=== PATIENT | male | born 1970 | race Caucasian/White ===

== ENCOUNTER 2017-06-25 19:23 | Emergency (ER) | payer OTHER ==
[2017-06-25 19:43] VITALS: BP 122/75
--- NOTE | 2017-06-25 20:24 | UC ---
Shoulder Pain HPI - History of Current Complaint Chief Complaint: UCUpperExtremity Stated Complaint: LEFT SHOULDER PAIN Time Seen by Provider: 06/25/17 20:06 Onset/Duration: Sudden Onset - lifting a car door yesterday about 2 PM, Still Present Timing: Constant Severity Initially: Severe - initially with a burning sensation that made him weak in the knees. Severity Currently: Severe Location Of Pain: Is Discrete @ - Left anterior shoulder. Character: Sharp, Burning Aggravating Factor(s): Movement Alleviating Factor(s): Rest Associated Signs And Symptoms: Positive: Swelling, Numbness/Tingling - down the arm. Related History: Dominant Hand Right - Allergies/Home Medications Allergies/Adverse Reactions: Allergies Allergy/AdvReac Type Severity Reaction Status Date / Time Varenicline [From Chantix] Allergy Rash Verified 06/25/17 19:44 Meperidine [From Demerol HCl] AdvReac Vomiting Verified 06/25/17 19:44 Mushroom Extract Complex AdvReac Vomiting Verified 06/25/17 19:44 PMH/Surg Hx/FS Hx/Imm Hx Respiratory History: COPD - Surgical History Surgical History: None Surgery Procedure, Year, and Place: cervical fusion c5-6/[place]-2004; R shoulder surgery; left knee surgery; cholecystectomy. CARDIAC STENT April or May 2014. Abdominal hernia surgery-03/31/16 and 2014 - Family History Known Family History: Positive: None, Cardiac Disease, Hypertension, Diabetes - Social History Occupation: Disabled Lives: With Family Alcohol Use: Rare Substance Use Type: None Substance Use Comment - Amount & Last Used: percocet Smoking Status (MU): Current Every Day Smoker Type: Cigarettes Amount Used/How Often: 1/2 pack Length of Time of Smoking/Using Tobacco: age 14 Have You Smoked in the Last Year: Yes Household Exposure Type: Cigarettes - Immunization History Most Recent Influenza Vaccination: not this season Review of Systems Musculoskeletal: Arthralgia - Left shoulder. Neurological: Weakness All Other Systems Reviewed And Are Negative: Yes Physical Exam Triage Information Reviewed: Yes Appearance: Well-Appearing, Well-Nourished, Pain Distress Vital Signs: Initial Vital Signs Temp 99.3 F 06/25/17 19:36 Pulse 84 06/25/17 19:36 Resp 22 06/25/17 19:36 BP 122/75 06/25/17 19:36 Pulse Ox 95 06/25/17 19:36 Vital Signs Reviewed: Yes Eyes: Positive: Conjunctiva Inflamed Neck exam: Normal Respiratory: Positive: Decreased breath sounds Cardiovascular Exam: Normal Musculoskeletal: Positive: Strength Limited @ - left shoulder pain with internal rotation < external rotation < abduction., ROM Limited @ - Left shoulder. Unable to abduct at all. Neurological: Positive: Other: - Decreased sensation to pinprick ? C5 dermatome on the left. Psychological Exam: Normal Skin Exam: Normal Shoulder Course/Dx - Differential Dx/Diagnosis Differential Diagnosis/HQI/PQRI: Dislocation, Rotator Cuff Injury, Sprain, Strain, Tendonitis Provider Diagnoses: Rotator cuff tear. Discharge - Discharge Plan Condition: Stable Disposition: HOME Patient Education Materials: Rotator Cuff Injury (ED) Referrals: MELIDA Donnelly [Primary Care Provider] - Mohsen Edwards MD [Medical Doctor] - 2 Days Additional Instructions: Smoking Cessation Tricks. 1. Cut down by 1 cigarette per day every 2-3 days. Write the number of smokes for that day on the calendar. 2. Identify triggers to smoking: after meals, on the phone, in the car, with coffee, on breaks at work, etc. 3. Formulate a plan with a behavior to replace the smoking. Fireballs in the car , doodle pad on the phone, flavored creamer for the coffee, go for a walk after a meal or on break at work. 4. For stress smokes do deep breathing relaxation. Breath deep in through the nose hold the breath in for a few seconds then breath out slowly through the mouth.
--- NOTE | 2017-06-25 21:20 | RAD ---
Indication: Left shoulder pain 4 views of left shoulder demonstrates no fracture. Calcific tendinitis of the supraspinatus tendon is noted. Glenohumeral joint is intact. IMPRESSION: Calcific tendinitis of the supraspinatus tendon.
== END 2017-06-25 21:04 | disposition home or self-care (01) ==
LOC: UCCORT 19:23
DX: S46.012A Strain of muscle(s) and tendon(s) of the rotator cuff of left shoulder, initial encounter (principal); X50.9XXA Other and unspecified overexertion or strenuous movements or postures, initial encounter; Y93.9 Activity, unspecified; Y92.9 Unspecified place or not applicable; J44.9 Chronic obstructive pulmonary disease, unspecified; Z90.49 Acquired absence of other specified parts of digestive tract; Z95.5 Presence of coronary angioplasty implant and graft; F17.210 Nicotine dependence, cigarettes, uncomplicated
CPT/HCPCS: 99212; G0463

== ENCOUNTER 2017-07-30 21:13 | Emergency (ER) | payer OTHER ==
[2017-07-30 21:32] VITALS: BP 123/90
--- NOTE | 2017-07-30 22:00 | UC ---
Hand/Wrist HPI - HPI Summary HPI Summary: Hit left thumb with hammer working on his truck. - History Of Current Complaint Chief Complaint: UCUpperExtremity Stated Complaint: LEFT THUMB INJURY Time Seen by Provider: 07/30/17 21:48 Hx Obtained From: Patient Onset/Duration: Sudden Onset - hit thumb with a hammer., Still Present Severity Initially: Moderate Severity Currently: Moderate Character Of Pain: Dull, Aching Aggravating Factor(s): Movement Associated Signs And Symptoms: Positive: Swelling, Numbness/Tingling Related History: Dominant Hand Right - Allergies/Home Medications Allergies/Adverse Reactions: Allergies Allergy/AdvReac Type Severity Reaction Status Date / Time Varenicline [From Chantix] Allergy Rash Verified 07/30/17 21:31 Meperidine [From Demerol HCl] AdvReac Vomiting Verified 07/30/17 21:31 Mushroom Extract Complex AdvReac Vomiting Verified 07/30/17 21:31 PMH/Surg Hx/FS Hx/Imm Hx Respiratory History: COPD - Surgical History Surgical History: Yes Surgery Procedure, Year, and Place: right shoulder. left knee. C5-C6 neck. gallbladder. hernia repair x2 - Family History Known Family History: Positive: Cardiac Disease, Hypertension, Diabetes - Social History Occupation: Disabled Lives: Alone - with girlfriend Alcohol Use: Rare Substance Use Type: None Substance Use Comment - Amount & Last Used: percocet Smoking Status (MU): Former Smoker Type: Cigarettes Amount Used/How Often: 1/2 pack Length of Time of Smoking/Using Tobacco: age 14 Have You Smoked in the Last Year: Yes When Did the Patient Quit Smoking/Using Tobacco: QUIT June 29, 2017 Household Exposure Type: Cigarettes - Immunization History Most Recent Influenza Vaccination: not this season Review of Systems Musculoskeletal: Arthralgia Neurological: Numbness Is Patient Immunocompromised?: No All Other Systems Reviewed And Are Negative: Yes Physical Exam Triage Information Reviewed: Yes Appearance: Well-Appearing, No Pain Distress, Well-Nourished Vital Signs: Initial Vital Signs Temp 98.1 F 07/30/17 21:25 Pulse 71 07/30/17 21:25 Resp 16 07/30/17 21:25 BP 123/90 07/30/17 21:25 Pulse Ox 98 07/30/17 21:25 Vital Signs Reviewed: Yes Eyes: Positive: Conjunctiva Inflamed Neck exam: Normal Respiratory: Positive: Lungs clear, Decreased breath sounds Cardiovascular Exam: Normal Musculoskeletal: Positive: ROM Limited @ - left thumb, Other: - Tender over the thumb prox phalynx and metacarpal. Neurological: Positive: Other: - numbness to pinprick over the thumb. Psychological Exam: Normal Skin Exam: Normal Skin: Positive: Other - abrasion on the left hand over 4th PIP Hand/Wrist Course/Dx - Differential Dx/Diagnosis Differential Diagnosis/HQI/PQRI: Contusion, Fracture, Sprain Provider Diagnoses: Contusion thumb. Nerve contusion, neuritis. abrasion left hand Discharge - Discharge Plan Condition: Stable Disposition: HOME Patient Education Materials: Contusion in Adults (ED), Abrasion (ED) Referrals: MELIDA Donnelly [Primary Care Provider] - 5 Days (Recheck nerve bruise on the thumb.)
--- NOTE | 2017-07-31 11:08 | RAD ---
Indication: Pain over the first metacarpal and proximal phalanx following injury. Comparison: No relevant prior exams available on the [facility] for comparison. Technique: AP, lateral, and oblique views LEFT thumb. REPORT AND IMPRESSION: Normal articular alignment. No cortical disruption or suspicious trabecular irregularity to suggest fracture. Soft tissue swelling most prominent at the level of the interphalangeal joint.
== END 2017-07-30 22:40 | disposition home or self-care (01) ==
LOC: UCCORT 21:13
DX: W20.8XXA Other cause of strike by thrown, projected or falling object, initial encounter (principal); Z88.8 Allergy status to other drugs, medicaments and biological substances; Z88.5 Allergy status to narcotic agent; Z91.02 Food additives allergy status
CPT/HCPCS: 99211; G0463

== ENCOUNTER 2017-09-11 14:17 | Emergency (ER) | payer OTHER ==
[2017-09-11 14:26] VITALS: BP 131/78
--- NOTE | 2017-09-11 14:41 | UC ---
Skin Complaint HPI - HPI Summary HPI Summary: Stapled right hand yesterday and today hand is swollen and painful. - History of Current Complaint Chief Complaint: UCSkin Time Seen by Provider: 09/11/17 14:34 Stated Complaint: PUNCTURE WOUND -RIGHT HAND Hx Obtained From: Patient Onset/Duration: Sudden Onset - stapled hand, Lasting Days - 1, Worse Since - today Skin Exposure Onset/Duration: Hours Ago - 20 Timing: Constant Onset Severity: Mild Current Severity: Moderate Location: Hand (Right) - palm over the 5th metacarpal Character: Swelling, Pain, Redness Aggravating Factor(s): Touch Alleviating Factor(s): Nothing Associated Signs & Symptoms: Positive: Tenderness, Joint Swelling. Negative: Fever, Chills Related History: Trauma - from staple gun - Allergy/Home Medications Allergies/Adverse Reactions: Allergies Allergy/AdvReac Type Severity Reaction Status Date / Time Varenicline [From Chantix] Allergy Rash Verified 09/11/17 14:26 Meperidine [From Demerol HCl] AdvReac Vomiting Verified 09/11/17 14:26 Mushroom Extract Complex AdvReac Vomiting Verified 09/11/17 14:26 Review of Systems Respiratory: Cough Is Patient Immunocompromised?: No All Other Systems Reviewed And Are Negative: Yes PMH/Surg Hx/FS Hx/Imm Hx Previously Healthy: No Cardiovascular History: Cardiac Disease Respiratory History: COPD - Surgical History Surgical History: Yes Surgery Procedure, Year, and Place: right shoulder. left knee. C5-C6 neck. gallbladder. hernia repair x2 - Family History Known Family History: Positive: Cardiac Disease, Hypertension, Diabetes - Social History Occupation: Disabled Lives: Alone - with GF Alcohol Use: None Substance Use Type: None Substance Use Comment - Amount & Last Used: percocet Smoking Status (MU): Heavy Every Day Tobacco Smoker Type: Cigarettes Amount Used/How Often: 1/2 pack Length of Time of Smoking/Using Tobacco: age 14 Have You Smoked in the Last Year: Yes When Did the Patient Quit Smoking/Using Tobacco: QUIT June 29, 2017 Household Exposure Type: Cigarettes Cessation Counseling: Patient Advised to Stop - Immunization History Most Recent Influenza Vaccination: not this season Physical Exam Triage Information Reviewed: Yes Appearance: Well-Appearing, Well-Nourished, Pain Distress - mild Vital Signs: Initial Vital Signs Temp 98 F 09/11/17 14:22 Pulse 88 09/11/17 14:22 Resp 16 10/29/17 14:22 BP 131/78 09/11/17 14:22 Pulse Ox 97 09/11/17 14:22 Vital Signs Reviewed: Yes Eyes: Positive: Conjunctiva Inflamed Neck exam: Normal Respiratory: Positive: Lungs clear, Decreased breath sounds Cardiovascular Exam: Normal Musculoskeletal: Positive: 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 Psychological Exam: Normal Skin: Positive: Other - Puncture wounds on medial right palm with redness and swelling. Course/Dx - Differential Diagnoses - Skin Complaint Differential Diagnoses: Abscess, Cellulitis, MRSA - Diagnoses Provider Diagnoses: Open wound right hand. Cellulitis right hand. Nerve injury right hand Discharge - Discharge Plan Condition: Stable Disposition: HOME Prescriptions: Cefdinir [Cefdinir 300 MG CAP] 300 mg PO BID #20 cap Ibuprofen TAB* [Motrin TAB* 600 MG] 600 mg PO Q6H PRN #100 tab PRN Reason: Pain Patient Education Materials: Cellulitis (ED), Ceftriaxone (By injection), Cefdinir (By mouth) Referrals: Ravinder SalterRavinder [Primary Care Provider] - Adina Villagran MD [Medical Doctor] - 1 Day (follow up for hand infection with nerve injury) Additional Instructions: If the hand is getting a lot worse, go to the ER. Some hand infections need to be opened up to treat the infection.
[2017-09-11] MEDS ORDERED: Ibuprofen TAB* 600 MG PO ONE (14:46)
[2017-09-11] MEDS ORDERED: cefTRIAXone VIAL(*) 1,000 MG VIAL IM ONE (15:00)
[2017-09-11] MEDS ORDERED: Lidocaine 1% MPF* 2 ML VIAL ONE ×2 (15:05→15:09)
--- NOTE | 2017-09-11 15:08 | RAD ---
HISTORY: penetrating trauma COMPARISONS: June 16, 2016 VIEWS: 4, Frontal, lateral, and oblique views of the right hand FINDINGS: BONE DENSITY: Normal. BONES: There is no displaced fracture. JOINTS: There is no arthropathy. ALIGNMENT: There is no dislocation. SOFT TISSUES: Unremarkable. OTHER FINDINGS: There is no radiopaque foreign body IMPRESSION: NO ACUTE OSSEOUS INJURY. IF SYMPTOMS PERSIST, RECOMMEND REPEAT IMAGING.
== END 2017-09-11 15:38 | disposition home or self-care (01) ==
LOC: UCCORT 14:17
DX: S61.431A Puncture wound without foreign body of right hand, initial encounter (principal); L02.511 Cutaneous abscess of right hand; F17.210 Nicotine dependence, cigarettes, uncomplicated; X58.XXXA Exposure to other specified factors, initial encounter; Z88.2 Allergy status to sulfonamides; Z91.018 Allergy to other foods; Z88.5 Allergy status to narcotic agent; Z71.6 Tobacco abuse counseling
CPT/HCPCS: 96372; 99212; A9270-GY; G0463; J0696

== ENCOUNTER 2018-05-10 12:43 | Emergency (ER) | payer OTHER ==
[2018-05-10 12:59] VITALS: BP 137/87
--- NOTE | 2018-05-10 13:56 | UC ---
Minor Trauma HPI - HPI Summary HPI Summary: Hit right anterior ribs on part of his truck as he fell two days ago. he denies hx of alcohol or drug abuse. He says it hurts to cough, breath deeply and with certain positions. He is eating and drinking fine. - History of Current Complaint Chief Complaint: UCTrauma Stated Complaint: RIGHT SIDE RIB PAIN Time Seen by Provider: 05/10/18 13:39 Hx Obtained From: Patient Onset/Duration: Sudden Onset, Lasting Days Onset Of Pain: Immediate Severity Initially: Moderate Severity Currently: Severe Pain Intensity: 10 Mechanism Of Injury: Blunt Trauma, Direct Blow, Fall From A Standing Position Aggravating Factor(s): Coughing, Deep Breaths, Movement Alleviating Factor(s): Rest - Allergies/Home Medications Allergies/Adverse Reactions: Allergies Allergy/AdvReac Type Severity Reaction Status Date / Time varenicline [From Chantix] Allergy Rash Verified 05/10/18 12:59 meperidine [From Demerol] AdvReac Vomiting Verified 05/10/18 12:59 mushroom AdvReac Vomiting Verified 05/10/18 12:59 PMH/Surg Hx/FS Hx/Imm Hx Previously Healthy: No - chronic back disease. - Surgical History Surgical History: Yes Surgery Procedure, Year, and Place: right shoulder. left knee. 2008- C5-C6 neck - fusion. gallbladder. hernia repair. 2012 CARDIAC STENT - Family History Known Family History: Positive: None, Cardiac Disease, Hypertension, Diabetes - Social History Alcohol Use: None Substance Use Type: None Substance Use Comment - Amount & Last Used: percocet Smoking Status (MU): Current Every Day Smoker Type: Cigarettes Amount Used/How Often: 1/2 PPD Length of Time of Smoking/Using Tobacco: age 14 Have You Smoked in the Last Year: Yes When Did the Patient Quit Smoking/Using Tobacco: QUIT June 29, 2017 Household Exposure Type: Cigarettes - Immunization History Most Recent Influenza Vaccination: not this season Review of Systems Cardiovascular: Chest Pain All Other Systems Reviewed And Are Negative: Yes Physical Exam Triage Information Reviewed: Yes Appearance: Well-Appearing, Pain Distress - Generally comfortable but obvious pain with certain movements. Vital Signs: Initial Vital Signs Temp 98.1 F 05/10/18 12:54 Pulse 90 05/10/18 12:54 Resp 16 05/10/18 12:54 BP 137/87 05/10/18 12:54 Pulse Ox 98 06/27/18 12:54 Vital Signs Reviewed: Yes Eyes: Positive: Conjunctiva Clear ENT: Positive: Normal ENT inspection Neck: Positive: Supple, Nontender, No Lymphadenopathy Respiratory: Positive: Lungs clear, Normal breath sounds, No respiratory distress, No accessory muscle use. Negative: Respiratory distress, Decreased breath sounds, Accessory muscle use, Crackles Cardiovascular: Positive: RRR, No Murmur. Negative: Tachycardia Abdomen Description: Positive: No Organomegaly, Soft. Negative: Distended, Guarding Musculoskeletal Exam: Other - Obvious pin point tenderness at the costochondral junction right lower anterior chest. Neurological: Positive: Alert, Muscle Tone Normal. Negative: Fatigued Psychological: Positive: Age Appropriate Behavior Skin: Negative: rashes Minor Trauma Course/Dx - Course Course Of Treatment: Lungs clear. No deformity or crepitus. Abd soft and non tender. Lungs clear. We discussed pneumonia prevention and he agrees to get seen again for sob, fever, productive cough or increased pain. - Differential Dx/Diagnosis Differential Diagnosis/HQI/PQRI: Fracture Provider Diagnoses: rib contusion. possible rib fracture. costochondral junction injury. Discharge - Sign-Out/Discharge Documenting (check all that apply): Discharge/Admit/Transfer - Discharge Plan Condition: Good Disposition: HOME Prescriptions: oxyCODONE/Acetamin 5/325 MG* [Percocet 5/325 TAB*] 1 tab PO Q4H PRN #20 tab MDD 6 PRN Reason: Pain Patient Education Materials: Rib Fracture (ED) Referrals: Mireya Batres PA [Primary Care Provider] - - Billing Disposition and Condition Condition: GOOD Disposition: Home
== END 2018-05-10 13:56 | disposition home or self-care (01) ==
LOC: UCCORT 12:43
DX: S20.211A Contusion of right front wall of thorax, initial encounter (principal); S29.9XXA Unspecified injury of thorax, initial encounter; W19.XXXA Unspecified fall, initial encounter; Y93.9 Activity, unspecified; Y92.9 Unspecified place or not applicable; Z88.5 Allergy status to narcotic agent; Z88.8 Allergy status to other drugs, medicaments and biological substances; Z98.61 Coronary angioplasty status; Z87.891 Personal history of nicotine dependence
CPT/HCPCS: 99212; G0463

== ENCOUNTER 2018-06-21 13:48 | Emergency (ER) | payer OTHER ==
[2018-06-21 14:03] VITALS: BP 115/77
--- NOTE | 2018-06-21 14:18 | UC ---
Elbow Pain - HPI Summary HPI Summary: Pt c/o right elbow pain that began six weeks ago after falling from standing while getting out of truck. Pt c/o pain at right proximal radial head. - History of Current Complaint Chief Complaint: UCUpperExtremity Stated Complaint: RT ELBOW COMPLAINT Time Seen by Provider: 06/21/18 14:07 Hx Obtained From: Patient Onset/Duration: Weeks, Traumatic - fall from standing Severity Initially: Moderate Severity Currently: Mild Pain Intensity: 7 Location Of Pain: Is Discrete @ - right proximal elbow/radial head Character: Dull, Aching Aggravating Factor(s): Movement, Twisting Alleviating Factor(s): Rest Associated Signs And Symptoms: Positive: Swelling - Allergies/Home Medications Allergies/Adverse Reactions: Allergies Allergy/AdvReac Type Severity Reaction Status Date / Time varenicline [From Chantix] Allergy Rash Verified 05/10/18 12:59 meperidine [From Demerol] AdvReac Vomiting Verified 05/10/18 12:59 mushroom AdvReac Vomiting Verified 05/10/18 12:59 PMH/Surg Hx/FS Hx/Imm Hx Previously Healthy: Yes - Surgical History Surgical History: Yes Surgery Procedure, Year, and Place: right shoulder. left knee. 2008- C5-C6 neck - fusion. gallbladder. hernia repair. 2012 CARDIAC STENT - Family History Known Family History: Positive: Cardiac Disease, Hypertension, Diabetes - Social History Occupation: Employed Full-time Lives: With Family Alcohol Use: None Substance Use Type: None Substance Use Comment - Amount & Last Used: percocet Smoking Status (MU): Current Every Day Smoker Type: Cigarettes Amount Used/How Often: 1/2 PPD Length of Time of Smoking/Using Tobacco: age 14 Have You Smoked in the Last Year: Yes When Did the Patient Quit Smoking/Using Tobacco: QUIT June 29, 2017 Household Exposure Type: Cigarettes - Immunization History Most Recent Influenza Vaccination: not this season Review of Systems Constitutional: Negative Skin: Negative Eyes: Negative ENT: Negative Respiratory: Negative Cardiovascular: Negative Gastrointestinal: Negative Genitourinary: Negative Motor: Decreased ROM - pain wiht ROM Neurovascular: Negative Musculoskeletal: Arthralgia, Myalgia Neurological: Negative Psychological: Negative Is Patient Immunocompromised?: No All Other Systems Reviewed And Are Negative: Yes Physical Exam Triage Information Reviewed: Yes Appearance: Well-Appearing Vital Signs: Initial Vital Signs Temp 97.3 F 06/21/18 13:57 Pulse 106 06/21/18 13:57 Resp 21 06/21/18 13:57 BP 115/77 06/21/18 13:57 Pulse Ox 95 06/21/18 13:57 Vital Signs Reviewed: Yes Eye Exam: Normal ENT: Positive: Hearing grossly normal Neck exam: Normal Respiratory: Positive: No respiratory distress Musculoskeletal: Positive: Strength Limited @ - right elbow, Other: - pain at proximal radial head Neurological Exam: Normal Psychological Exam: Normal Skin Exam: Normal Diagnostics - Radiology No standard instances Radiology Interpretation Completed By: Radiologist - IMPRESSION: #. Small joint effusion. In the setting of trauma a radiographic occult fracture is not entirely excluded. Given the patient's age and occult radial head fracture would be most likely. #. Mild ulnar and dorsal soft tissue swelling. Elbow Pain Course/Dx - Differential Dx/Diagnosis Differential Diagnosis/HQI/PQRI: Bursitis, Fracture (Closed) Provider Diagnoses: probable right radial head fracture Discharge - Sign-Out/Discharge Documenting (check all that apply): Patient Departure - Discharge Plan Condition: Stable Disposition: HOME Patient Education Materials: Elbow Fracture (ED) Referrals: Mohsen Edwards MD [Medical Doctor] - As Soon As Possible Mireya Batres PA [Primary Care Provider] - If Needed - Billing Disposition and Condition Condition: STABLE Disposition: Home Attestation Statement User Type: Provider - I was available for consult. This patient was seen by the PETER. The patient was not presented to, seen by, or examined by me. -Bryanna
--- NOTE | 2018-06-21 14:56 | RAD ---
INDICATION: Lateral and posterior RIGHT elbow pain post fall 6 weeks ago. COMPARISON: January 15, 2015 TECHNIQUE: AP, lateral, and oblique views RIGHT elbow. REPORT: Mild displacement of the anterior fat pad indicating a small joint effusion. No cortical disruption or suspicious trabecular irregularity to suggest fracture. Normal articular alignment and preserved joint spaces. Mild ulnar and dorsal soft tissue swelling. IMPRESSION: #. Small joint effusion. In the setting of trauma a radiographic occult fracture is not entirely excluded. Given the patient's age and occult radial head fracture would be most likely. #. Mild ulnar and dorsal soft tissue swelling.
== END 2018-06-21 15:10 | disposition home or self-care (01) ==
LOC: UCCORT 13:48
DX: M25.421 Effusion, right elbow (principal); R22.31 Localized swelling, mass and lump, right upper limb; V99.XXXA Unspecified transport accident, initial encounter; Y93.89 Activity, other specified; Y92.9 Unspecified place or not applicable; Z87.891 Personal history of nicotine dependence; Z88.8 Allergy status to other drugs, medicaments and biological substances
CPT/HCPCS: 99212; G0463

== ENCOUNTER 2018-10-21 16:14 | Emergency (ER) | payer OTHER ==
[2018-10-21 16:24] VITALS: BP 114/84
--- NOTE | 2018-10-21 16:33 | UC ---
General HPI - HPI Summary HPI Summary: pt bent down and felt a "pop" with pain in his R knee yesterday. he is here with ongoing pain and swelling in the knee. pt is on chronic pain medication but still has pain. - History of Current Complaint Chief Complaint: UCLowerExtremity Stated Complaint: RIGHT KNEE PAIN Time Seen by Provider: 10/21/18 16:21 Hx Obtained From: Patient Onset/Duration: Sudden Onset Timing: Constant Pain Intensity: 8 Aggravating: bending the knee Associated Signs & Symptoms: Negative: Fever - Allergy/Home Medications Allergies/Adverse Reactions: Allergies Allergy/AdvReac Type Severity Reaction Status Date / Time varenicline [From Chantix] Allergy Rash Verified 09/15/18 11:32 meperidine [From Demerol] AdvReac Vomiting Verified 09/15/18 11:32 mushroom AdvReac Vomiting Verified 09/15/18 11:32 PMH/Surg Hx/FS Hx/Imm Hx - Additional Past Medical History Additional PMH: chronic neck and back pain. Cardiovascular History: Hypertension Psychological History: Depression - Surgical History Surgical History: Yes Surgery Procedure, Year, and Place: right shoulder. left knee. 2008- C5-C6 neck - fusion. gallbladder. hernia repair. 2012 CARDIAC STENT - Family History Known Family History: Positive: Cardiac Disease, Hypertension, Diabetes - Social History Alcohol Use: Rare Substance Use Type: None Substance Use Comment - Amount & Last Used: percocet Smoking Status (MU): Current Every Day Smoker Type: Cigarettes Amount Used/How Often: 1/2 PPD Length of Time of Smoking/Using Tobacco: age 14 Have You Smoked in the Last Year: Yes When Did the Patient Quit Smoking/Using Tobacco: QUIT June 29, 2017 Household Exposure Type: Cigarettes - Immunization History Most Recent Influenza Vaccination: not this season Vaccination Up to Date: Yes Review of Systems All Other Systems Reviewed And Are Negative: Yes Constitutional: Positive: Negative Skin: Positive: Negative Eyes: Positive: Negative ENT: Positive: Negative Respiratory: Positive: Negative Cardiovascular: Positive: Negative Gastrointestinal: Positive: Negative Genitourinary: Positive: Negative Motor: Positive: Negative Neurovascular: Positive: Negative Musculoskeletal: Positive: Edema - R knee, Other: - chronic neck and back pain and acute R knee pain Neurological: Positive: Negative Psychological: Positive: Negative Is Patient Immunocompromised?: No Physical Exam Triage Information Reviewed: Yes Appearance: Well-Appearing Vital Signs: Initial Vital Signs Temp 98 F 10/21/18 16:21 Pulse 106 10/21/18 16:21 Resp 18 10/21/18 16:21 BP 114/84 10/21/18 16:21 Pulse Ox 97 10/21/18 16:21 Vital Signs Reviewed: Yes Eyes: Positive: Conjunctiva Clear ENT: Positive: Normal ENT inspection Neck: Positive: Supple, Nontender Respiratory: Positive: Lungs clear, Normal breath sounds Cardiovascular: Positive: RRR, No Murmur Abdomen Description: Positive: Nontender, No Organomegaly, Soft Bowel Sounds: Positive: Present Musculoskeletal: Positive: Other: - RLE: knee has mild swelling plus is tender over lateral joint line. no ligament laxity. c/o pain on flexion but active ROM is intact. Hip and lower leg are non tender and have gross s/v/m function. achilles is intact. calf has no swelling or cords. limping gait. Neurological: Positive: Alert Psychological: Positive: Age Appropriate Behavior Skin Exam: Normal Diagnostics - Radiology No standard instances Radiology Interpretation Completed By: ED Physician - WET READ=DEG CHANGES, SMALL EFFUSION. Course/Dx - Course Course Of Treatment: no concern for fx or infection. possible meiscal tear. - Diagnoses Provider Diagnosis: Right knee pain, Effusion, right knee Discharge - Sign-Out/Discharge Documenting (check all that apply): Patient Departure All imaging exams completed and their final reports reviewed: No - Discharge Plan Condition: Stable Disposition: HOME Patient Education Materials: Knee Pain (ED), Swollen Joint (ED) Referrals: Mohsen Edwards MD [Medical Doctor] - As Soon As Possible Additional Instructions: USE NANNETTE AND CRUTCHES UNTIL CLEARED. REMOVE NANNETTE AT BEDTIME. - Billing Disposition and Condition Condition: STABLE Disposition: Home - Attestation Statements Provider Attestation: Per institutional requirements, I have reviewed the chart, however, I was not consulted specifically or made aware of this patient by the midlevel provider. I did not personally evaluate, interact with , or disposition this patient. Addendum entered and electronically signed by Areli Masters PA 10/21/18 17:41 : Addendum Addendum: IMPRESSION: Normal knee radiograph as described above.
--- NOTE | 2018-10-22 07:06 | UC ---
- Progress Note Progress Note: Final report was reviewed yesterday as noted on addendum IMPRESSION: Normal knee radiograph as described above. No change Course/Dx - Diagnoses Provider Diagnoses: Right knee pain, Effusion, right knee Discharge - Sign-Out/Discharge Documenting (check all that apply): Post-Discharge Follow Up All imaging exams completed and their final reports reviewed: Yes - Discharge Plan Condition: Stable Disposition: HOME Patient Education Materials: Knee Pain (ED), Swollen Joint (ED) Referrals: Mohsen Edwards MD [Medical Doctor] - As Soon As Possible Additional Instructions: USE NANNETTE AND CRUTCHES UNTIL CLEARED. REMOVE NANNETTE AT BEDTIME. - Billing Disposition and Condition Condition: STABLE Disposition: Home
== END 2018-10-21 17:25 | disposition home or self-care (01) ==
LOC: UCCORT 16:14
DX: M25.461 Effusion, right knee (principal); Z88.4 Allergy status to anesthetic agent; Z88.8 Allergy status to other drugs, medicaments and biological substances; I10 Essential (primary) hypertension; Z87.891 Personal history of nicotine dependence
CPT/HCPCS: 99211; G0463

== ENCOUNTER 2019-10-08 10:57 | Emergency (ER) | payer OTHER ==
[2019-10-08 11:22] VITALS: BP 111/69
--- NOTE | 2019-10-08 11:39 | ED ---
Throat Pain/Nasal Congestion - HPI Summary HPI Summary: 48-year-old white male presents with bilateral ear pains 2 days associated with URI symptoms. Pain is so severe that patient complains he cannot sleep at night. - History of Current Complaint Chief Complaint: UCEar Time Seen by Provider: 10/08/19 11:17 Hx Obtained From: Patient Onset/Duration: Lasting Days Severity: Severe Associated Signs And Symptoms: Positive: Negative Cough: Nonproductive - Allergies/Home Medications Allergies/Adverse Reactions: Allergies Allergy/AdvReac Type Severity Reaction Status Date / Time varenicline [From Chantix] Allergy Rash Verified 10/08/19 11:18 acetaminophen [From Tylenol] AdvReac See Comment Verified 10/08/19 11:18 meperidine [From Demerol] AdvReac Vomiting Verified 10/08/19 11:18 mushroom AdvReac Vomiting Verified 10/08/19 11:18 PMH/Surg Hx/FS Hx/Imm Hx Previously Healthy: Yes Endocrine/Hematology History: Denies: Hx Diabetes, Hx Thyroid Disease Cardiovascular History: Denies: Hx Hypertension, Hx Pacemaker/ICD Respiratory History: Reports: Hx Chronic Obstructive Pulmonary Disease (COPD) Denies: Hx Asthma, Hx Lung Cancer, Hx Pneumonia, Hx Pulmonary Embolism GI History: Reports: Hx Gall Bladder Disease Denies: Hx Gastrointestinal Bleed, Hx Ulcer, Hx Urosepsis History: Denies: Hx Dialysis, Hx Kidney Stones, Hx Renal Disease Musculoskeletal History: Reports: Hx Back Problems, Hx Orthopedic Injury - Fractured left foot great toe Sensory History: Reports: Hx Contacts or Glasses Denies: Hx Hearing Aid Opthamlomology History: Reports: Hx Contacts or Glasses Neurological History: Reports: Hx Migraine, Other Neuro Impairments/Disorders - PAIN CLINIC PT. Denies: Hx Dementia, Hx Seizures, Hx Transient Ischemic Attacks (TIA) Psychiatric History: Reports: Hx Depression Denies: Hx Anxiety, Hx Panic Disorder, Hx Schizophrenia, Hx Bipolar Disorder - Surgical History Surgery Procedure, Year, and Place: right shoulder. left knee. 2009- C5-C6 neck - fusion. gallbladder. hernia repair. 2013 CARDIAC STENT Infectious Disease History: No Infectious Disease History: Denies: Traveled Outside the [place] in Last 30 Days - Family History Known Family History: Positive: Cardiac Disease, Hypertension, Diabetes - Social History Alcohol Use: None Substance Use Type: Reports: None Substance Use Comment - Amount & Last Used: percocet Smoking Status (MU): Heavy Every Day Tobacco Smoker Type: Cigarettes Amount Used/How Often: 1/2 PPD Length of Time of Smoking/Using Tobacco: age 14 Have You Smoked in the Last Year: Yes Review of Systems Constitutional: Negative Eyes: Negative Positive: Ear Ache Cardiovascular: Negative Respiratory: Negative Gastrointestinal: Negative Genitourinary: Negative Musculoskeletal: Negative Skin: Negative Neurological: Negative Psychological: Normal All Other Systems Reviewed And Are Negative: Yes Physical Exam - Summary Physical Exam Summary: Appearance: Positive: No Pain Distress Skin: Positive: Warm Head/Face: Positive: Normal Head/Face Inspection Eyes: :Normal ENT: Bilateral TM erythema without effusion, bilateral moderate posterior auricular tenderness Neck: Positive: Supple Respiratory/Lung Sounds: Positive: Clear to Auscultation. Cardiovascular: Positive: Normal, RRR, S1, S2 Abdomen : soft, NT/ND Musculoskeletal: Positive: Normal, Strength/ROM Intact Neurological: Positive: CN 2-12 grossly intact Vital Signs On Initial Exam: Initial Vitals Temp Pulse Resp BP Pulse Ox 37.3 C 102 16 111/69 98 10/08/19 11:18 10/08/19 11:18 10/08/19 11:18 10/08/19 11:18 10/08/19 11:18 Diagnostics - Vital Signs Vital Signs Temp Pulse Resp BP Pulse Ox 10/08/19 11:18 37.3 C 102 16 111/69 98 - Laboratory Lab Statement: Any lab studies that have been ordered have been reviewed, and results considered in the medical decision making process. EENT Course/Dx - Diagnoses Provider Diagnoses: Otitis media Discharge ED - Sign-Out/Discharge Documenting (check all that apply): Patient Departure All imaging exams completed and their final reports reviewed: No Studies - Discharge Plan Condition: Stable Disposition: HOME Prescriptions: Amoxicillin/Clavulanate TAB* [Augmentin TAB 875*] 875 mg PO BID 7 Days #14 tab Oxycodone HCl 5 mg PO TID PRN 2 Days #6 tablet MDD 3 PRN Reason: Pain - Severe Patient Education Materials: Ear Infection (ED) Referrals: Mireya Batres PA [Primary Care Provider] - - Billing Disposition and Condition Condition: STABLE Disposition: Home
== END 2019-10-08 11:41 | disposition home or self-care (01) ==
LOC: UCCORT 10:57
DX: H66.93 Otitis media, unspecified, bilateral (principal); F17.210 Nicotine dependence, cigarettes, uncomplicated; Z88.8 Allergy status to other drugs, medicaments and biological substances; Z88.6 Allergy status to analgesic agent; Z91.018 Allergy to other foods
CPT/HCPCS: 99212; G0463

== ENCOUNTER 2020-01-09 01:44 | Observation (INO) | payer OTHER ==
[2020-01-09 02:35] LABS: Hematocrit 29 % (42-52); Hemoglobin 8.5 g/dL (14.0-18.0); Mean Corpuscular HGB Conc 29 g/dL (31-36); Mean Corpuscular Hemoglobin 17 pg (27-31); Mean Corpuscular Volume 60 fL (80-94); Mean Platelet Volume 8.3 fL (7.4-10.4); Platelet Count 212 10^3/uL (150-450); Red Blood Count 4.87 10^6 /uL (4.18-5.48); Red Cell Distribution Width 19 % (10-15)
[2020-01-09 02:36] LABS: ALT 10 U/L (7-52); AST 10 U/L (13-39); Activated Partial Thrombo Time 29.9 seconds (26.0-38.0); Albumin 4.3 g/dL (3.2-5.2); Albumin/Globulin Ratio 1.7 (1-3); Alkaline Phosphatase 95 U/L (34-104); Anion Gap 9 mmol/L (2-11); Blood Urea Nitrogen 12 mg/dL (6-24); CO2 Carbon Dioxide 24 mmol/L (22-32); Calcium 9.2 mg/dL (8.6-10.3); Chloride 108 mmol/L (101-111); EGFR African American 113.4 (>60); EGFR Non-African American 93.8 (>60); Globulin 2.5 g/dL (2-4); Glucose 163 mg/dL (70-100); INR 0.97 (0.82-1.09); Potassium 4.1 mmol/L (3.5-5.0); Sodium 141 mmol/L (135-145); Total Protein 6.8 g/dL (6.4-8.9)
[2020-01-09 03:16] LABS: Microcytosis 3+
[2020-01-09 03:17] LABS: ABS Basophils 0.1 10^3/ul (0-0.2); ABS Eosinophils 0.1 10^3/ul (0-0.6)
[2020-01-09 03:19] LABS: Nucleated Red Blood Cells % 0.1
[2020-01-09] MEDS ORDERED: NS 0.9% 1000 ML** 1,000 ML IV ONE ×2 (03:36→09:19)
[2020-01-09] MEDS ORDERED: Pantoprazole IV* 40 MG IV ONE (03:36)
[2020-01-09] MEDS ORDERED: Metoclopramide IV* 5 MG/ML 2 ML VIAL IV SLOW PU ONE (03:37)
[2020-01-09] MEDS ORDERED: diPHENhydraMINE IV* 50 MG/ML 1 ml VIAL (BENADRYL) IV ONE (03:38)
--- NOTE | 2020-01-09 03:46 | ED ---
Complex/Multi-Sys Presentation - HPI Summary HPI Summary: Pt is a 49 y/o M presenting to the ED with a chief complaint of anemia. He states he went to [facility] on 01/04 where they told him he was anemic, with a hemoglobin of 7.7, but they did not tell him much more. Since then, hes had increased shortness of breath, fatigue, fevers, generalized pain, night diaphoresis, headache, and some nausea. He denies dark or bloody stools, vomiting, urinary sx, or decreased oral intake. PMHx includes DDD, and MD 6-10yrs ago. No HTN, diabetes, or CA. FHx diabetes. He reports he had a similar episode 10yrs ago and he had endoscopies/upper GI scopes, but they never found anything. - History Of Current Complaint Chief Complaint: EDGeneral Time Seen by Provider: 01/09/20 02:22 Hx Obtained From: Patient Onset/Duration: Gradual Onset, Lasting Days, Still Present Timing: Constant, Days Severity Currently: Moderate Severity Initially: Moderate Associated Signs And Symptoms: Positive: SOB, Nausea, Fever. Negative: Vomiting , Dysuria, Melena, Decreased Oral Intake - Allergies/Home Medications Allergies/Adverse Reactions: Allergies Allergy/AdvReac Type Severity Reaction Status Date / Time varenicline [From Chantix] Allergy Rash Verified 01/09/20 01:48 acetaminophen [From Tylenol] AdvReac See Comment Verified 01/09/20 01:48 meperidine [From Demerol] AdvReac Vomiting Verified 01/09/20 01:48 mushroom AdvReac Vomiting Verified 01/09/20 01:48 Home Medications: Home Medications Gabapentin TAB(NF) [Neurontin 600 mg TAB(NF)] 600 mg PO TID PRN 07/27/17 [ History Confirmed 01/09/20] Ibuprofen 600 mg PO TID PRN 02/13/18 [History Confirmed 01/09/20] Albuterol Sulfate [Ventolin Hfa] 2 puff INH Q6HR PRN 01/09/20 [History Confirmed 01/09/20] Nitroglycerin 1 tab SL SEE INSTRUCTIONS PRN 01/09/20 [History Confirmed 01/09/20 ] Pantoprazole Sodium 1 tab PO DAILY 01/09/20 [History Confirmed 01/09/20] PMH/Surg Hx/FS Hx/Imm Hx Previously Healthy: Yes Endocrine/Hematology History: Denies: Hx Diabetes, Hx Thyroid Disease Cardiovascular History: Denies: Hx Hypertension, Hx Pacemaker/ICD Respiratory History: Reports: Hx Chronic Obstructive Pulmonary Disease (COPD) Denies: Hx Asthma, Hx Lung Cancer, Hx Pneumonia, Hx Pulmonary Embolism GI History: Reports: Hx Gall Bladder Disease Denies: Hx Gastrointestinal Bleed, Hx Ulcer, Hx Urosepsis History: Denies: Hx Dialysis, Hx Kidney Stones, Hx Renal Disease Musculoskeletal History: Reports: Hx Back Problems, Hx Orthopedic Injury - Fractured left foot great toe Sensory History: Reports: Hx Contacts or Glasses Opthamlomology History: Reports: Hx Contacts or Glasses Neurological History: Reports: Hx Migraine, Other Neuro Impairments/Disorders - PAIN CLINIC PT. Denies: Hx Dementia, Hx Seizures, Hx Transient Ischemic Attacks (TIA) Psychiatric History: Reports: Hx Depression Denies: Hx Anxiety, Hx Panic Disorder, Hx Schizophrenia, Hx Bipolar Disorder - Surgical History Surgery Procedure, Year, and Place: right shoulder. left knee. 2008- C5-C6 neck - fusion. gallbladder. hernia repair. 2013 CARDIAC STENT Infectious Disease History: No Infectious Disease History: Denies: Traveled Outside the [place] in Last 30 Days - Family History Known Family History: Positive: Cardiac Disease, Hypertension, Diabetes - Social History Alcohol Use: Rare Hx Substance Use: No Substance Use Type: Reports: None Substance Use Comment - Amount & Last Used: percocet Hx Tobacco Use: Yes Smoking Status (MU): Heavy Every Day Tobacco Smoker Type: Cigarettes Amount Used/How Often: 1/2 PPD Length of Time of Smoking/Using Tobacco: age 14 Have You Smoked in the Last Year: Yes Review of Systems - ROS Summary Review of Systems Summary: Home Medications Medication Instructions Recorded Confirmed Type Gabapentin TAB(NF) [Neurontin 600 600 mg PO QID 07/27/17 01/09/20 History mg TAB(NF)] Ibuprofen 600 mg PO TID PRN 02/13/18 01/09/20 History Albuterol Sulfate [Ventolin Hfa] 2 puff INH Q6HR PRN 01/09/20 01/09/20 History Nitroglycerin 1 tab SL SEE INSTRUCTIONS PRN 01/09/20 01/09/20 History Pantoprazole Sodium 1 tab PO DAILY 01/09/20 01/09/20 History Positive: Fever, Fatigue, Skin Diaphoresis, Other - decreased oral intake Positive: Nausea. Negative: Vomiting, Other - dark/bloody stools Positive: no symptoms reported Positive: Myalgia Positive: Headache All Other Systems Reviewed And Are Negative: Yes Physical Exam - Summary Physical Exam Summary: General: Well-developed, Well-nourished male. No acute distress. HEENT: Normocephalic, Atraumatic. Eyes: Conjuctiva normal, PERRL. Oropharynx: Clear, mucous membranes moist, (-) exudates. Neck: Soft, FROM, (-) lymphadenopathy, (-) thyromegaly, (-) JVD. Cardiovascular: Normal sinus rhythm, (-) murmur. Lungs: Clear to auscultation bilaterally (-) wheezes, (-) rales, (-) rhonchi. Abdomen: Soft, non-tender, non-distended, (-) organomegaly, normal bowel sounds. Back: (-) CVA tenderness Extremities: No edema. Skin: Warm, dry, (-) rash. Pale. Neuro: Alert and oriented x3, moves all extremities equally. No ataxia. No gait disturbance. No sensory deficit. Normal strength, normal sensation. Psychiatric: Mood normal, affect normal. Triage Information Reviewed: Yes Vital Signs On Initial Exam: Initial Vitals Temp Pulse Resp BP Pulse Ox 98.7 F 88 20 153/81 98 01/09/20 01:46 01/09/20 01:46 01/09/20 01:46 01/09/20 01:46 01/09/20 01:46 Vital Signs Reviewed: Yes Procedures - Sedation Patient Received Moderate/Deep Sedation with Procedure: No Diagnostics - Vital Signs Vital Signs Temp Pulse Resp BP Pulse Ox 01/09/20 03:00 86 21 93 01/09/20 02:51 85 11 123/82 93 01/09/20 02:21 80 16 127/82 98 01/09/20 02:20 21 01/09/20 01:46 98.7 F 88 20 153/81 98 - Laboratory Lab Results: Lab Results 01/09/20 01/09/20 01/09/20 Range/Units 02:13 02:13 02:13 WBC 7.2 (3.5-10.8) 10^3/uL RBC 4.87 (4.18-5.48) 10^6 /uL Hgb 8.5 L (14.0-18.0) g/dL Hct 29 L (42-52) % MCV 60 L (80-94) fL MCH 17 L (27-31) pg MCHC 29 L (31-36) g/dL RDW 19 H (10-15) % Plt Count 212 (150-450) 10^3/uL MPV 8.3 (7.4-10.4) fL Neut % (Auto) Not Reportable Lymph % (Auto) Not Reportable [place] % (Auto) Not Reportable Eos % (Auto) Not Reportable Baso % (Auto) Not Reportable Absolute Neuts (auto) Not Reportable Absolute Lymphs (auto) Not Reportable Absolute Monos (auto) Not Reportable Absolute Eos (auto) Not Reportable Absolute Basos (auto) Not Reportable Absolute Nucleated RBC 0.0 10^3/ul Neutrophils % 66.0 % Lymphocytes % 19.0 % Reactive Lymphs % 2.0 (0-6) % Monocytes % 9.0 % Eosinophils % 2.0 % Basophils % 2.0 % Nucleated RBC % 0.1 Abs Neuts (Manual) 4.8 (1.5-7.7) 10^3/ul Abs Lymphs (Manual) 1.5 (1.0-4.8) 10^3/ul Abs Monocytes (Manual) 0.7 (0-0.8) 10^3/ul Absolute Eos (Manual) 0.1 (0-0.6) 10^3/ul Abs Basophils (Manual) 0.1 (0-0.2) 10^3/ul Normal RBC Morphology Not Reportable Hypochromasia 2+ Anisocytosis 2+ Microcytosis 3+ Hem Pathologist Commnt Pending INR (Anticoag Therapy) 0.97 (0.82-1.09) APTT 29.9 (26.0-38.0) seconds Sodium 141 (135-145) mmol/L Potassium 4.1 (3.5-5.0) mmol/L Chloride 108 (101-111) mmol/L Carbon Dioxide 24 (22-32) mmol/L Anion Gap 9 (2-11) mmol/L BUN 12 (6-24) mg/dL Creatinine 0.86 (0.67-1.17) mg/dL Est GFR ( Amer) 113.4 (>60) Est GFR (Non-Af Amer) 93.8 (>60) BUN/Creatinine Ratio 14.0 (8-20) Glucose 163 H (70-100) mg/dL Calcium 9.2 (8.6-10.3) mg/dL Total Bilirubin 0.30 (0.2-1.0) mg/dL AST 10 L (13-39) U/L ALT 10 (7-52) U/L Alkaline Phosphatase 95 (34-104) U/L Total Protein 6.8 (6.4-8.9) g/dL Albumin 4.3 (3.2-5.2) g/dL Globulin 2.5 (2-4) g/dL Albumin/Globulin Ratio 1.7 (1-3) TSH (0.34-5.60) mcIU/mL Blood Type Antibody Screen 01/09/20 01/09/20 Range/Units 02:13 02:50 WBC (3.5-10.8) 10^3/uL RBC (4.18-5.48) 10^6 /uL Hgb (14.0-18.0) g/dL Hct (42-52) % MCV (80-94) fL MCH (27-31) pg MCHC (31-36) g/dL RDW (10-15) % Plt Count (150-450) 10^3/uL MPV (7.4-10.4) fL Neut % (Auto) Lymph % (Auto) [place] % (Auto) Eos % (Auto) Baso % (Auto) Absolute Neuts (auto) Absolute Lymphs (auto) Absolute Monos (auto) Absolute Eos (auto) Absolute Basos (auto) Absolute Nucleated RBC 10^3/ul Neutrophils % % Lymphocytes % % Reactive Lymphs % (0-6) % Monocytes % % Eosinophils % % Basophils % % Nucleated RBC % Abs Neuts (Manual) (1.5-7.7) 10^3/ul Abs Lymphs (Manual) (1.0-4.8) 10^3/ul Abs Monocytes (Manual) (0-0.8) 10^3/ul Absolute Eos (Manual) (0-0.6) 10^3/ul Abs Basophils (Manual) (0-0.2) 10^3/ul Normal RBC Morphology Hypochromasia Anisocytosis Microcytosis Hem Pathologist Commnt INR (Anticoag Therapy) (0.82-1.09) APTT (26.0-38.0) seconds Sodium (135-145) mmol/L Potassium (3.5-5.0) mmol/L Chloride (101-111) mmol/L Carbon Dioxide (22-32) mmol/L Anion Gap (2-11) mmol/L BUN (6-24) mg/dL Creatinine (0.67-1.17) mg/dL Est GFR ( Amer) (>60) Est GFR (Non-Af Amer) (>60) BUN/Creatinine Ratio (8-20) Glucose (70-100) mg/dL Calcium (8.6-10.3) mg/dL Total Bilirubin (0.2-1.0) mg/dL AST (13-39) U/L ALT (7-52) U/L Alkaline Phosphatase (34-104) U/L Total Protein (6.4-8.9) g/dL Albumin (3.2-5.2) g/dL Globulin (2-4) g/dL Albumin/Globulin Ratio (1-3) TSH 2.90 (0.34-5.60) mcIU/mL Blood Type O Positive Antibody Screen Negative Result Diagrams: 01/09/20 20:24 01/09/20 02:13 Lab Statement: Any lab studies that have been ordered have been reviewed, and results considered in the medical decision making process. - Radiology CXR Radiology Interpretation Completed By: ED Physician Summary of Radiographic Findings: No pleural effusion. No infiltrate. Pending official radiology report. - EKG 0154 Cardiac Rate: NL - 83 EKG Rhythm: Sinus Rhythm ST Segment: Normal Ectopy: None Summary of EKG Findings: EKG at 0154 reveals normal sinus rhythm with rate of 83 BPM, no acute changes, no ischemic changes. This EKG was reviewed and interpreted by Dr. Kenny. Re-Evaluation - Re-Evaluation First Eval Re-Evaluation Time: 08:13 Comment: Patient reports he went to [facility] on 01/04/[address] and had a chest CT that was negative for a pulmonary embolism. Patient was found to be anemic 7.06/11 but is not taking any treatments. Patient states he has been feeling short of breath but more so when moving around. He notes his last colonoscopy was more than 5 years ago but not more than 10 years ago and it was normal. Complex Multi-Symp Course/Dx Course Of Treatment: 49-year-old male presents with weakness and shortness of breath. Very complicated medical history including COPD, coronary artery disease. Chronic back pain. And recently diagnosed with anemia. States he to [facility] for chest pain and was told that he had anemia. He notes that he had a CT chest there which did not demonstrate any significant abnormality. He was told his hemoglobin was 7.7. He states he was told to follow up with GI. He states his symptoms have only worsened as far as his weakness and shortness of breath. Feels very poorly. Denies any fever. No vomiting or diarrhea. No chest pain. denies any known blood loss or change in stools. On physical exam he is pale. Not ill appearing. Laboratories demonstrated a hemoglobin of 8.5. normal platelets and white blood cells. patient treated with IV fluids, Zofran and Protonix. Patient signed out at change of shift awaiting CT abdomen and pelvis and probable admission. - Diagnoses Provider Diagnoses: Weak, Shortness of breath, Symptomatic anemia, Hypotension Discharge ED - Sign-Out/Discharge Documenting (check all that apply): Patient Departure - Discharge Plan Condition: Stable Disposition: ADMITTED TO [facility] - Billing Disposition and Condition Condition: STABLE Disposition: Admitted to [facility] - Attestation Statements Document Initiated by Roberto: Yes Documenting Scribe: Yohana Kamara Provider For Whom Roberto is Documenting (Include Credential): Nolvia Kenny MD. Scribe Attestation: Yohana Carranza, scribed for Nolvia Kenny MD. on 01/09/20 at 2048. Scribe Documentation Reviewed: Yes Provider Attestation: The documentation as recorded by the Yohana bernal accurately reflects the service I personally performed and the decisions made by me, Nolvia Kenny MD. Status of Scribe Document: Viewed
[2020-01-09] MEDS ORDERED: Iohexol 300* (CONTRAST) 10 ML SDV IV ONE (07:25)
--- NOTE | 2020-01-09 07:43 | ED ---
Progress - Progress Note Progress Note: This pt is a sign out from Dr. Kenny to Dr. Yoder at shift change on 01/09/[address] abdomen/pelvis. Physical Exam: VITAL SIGNS: Reviewed. GENERAL: Patient is a well-developed and nourished male who is lying comfortable in the stretcher. Patient is not in any acute respiratory distress. HEAD AND FACE: No signs of trauma. No ecchymosis, hematomas or skull depressions. No sinus tenderness. EYES: PERRLA, EOMI x 2, No injected conjunctiva, no nystagmus. EARS: Hearing grossly intact. Ear canals and tympanic membranes are within normal limits. MOUTH: Oropharynx within normal limits. NECK: Supple, trachea is midline, no adenopathy, no JVD, no carotid bruit, no c- spine tenderness, neck with full ROM. CHEST: Symmetric, no tenderness at palpation LUNGS: Clear to auscultation bilaterally. No wheezing or crackles. CVS: Regular rate and rhythm, S1 and S2 present, no murmurs or gallops appreciated. ABDOMEN: Soft, non-tender. No signs of distention. No rebound no guarding, and no masses palpated. Bowel sounds are normal. EXTREMITIES: FROM in all major joints, no edema, no cyanosis or clubbing. NEURO: Alert and oriented x 3. No acute neurological deficits. Speech is normal and follows commands. SKIN: Dry and warm - Results/Orders Results/Orders: Chest XR, as read by radiologist IMPRESSION: Bibasilar linear airspace opacification (infiltrate versus atelectasis). Dr. Yoder has reviewed this report. Abdomen/Pelvis CT, as read by radiologist IMPRESSION: 1. No obvious etiology for the patient's severe anemia. 2. Diverticulosis. 3. Large hiatal hernia. 4. Hepatomegaly. 5. Cholecystectomy. 6. Coronary artery disease. Dr. Yoder has reviewed this report. Re-Evaluation - Re-Evaluation First Eval Re-Evaluation Time: 08:13 Comment: Patient reports he went to [facility] on 01/04/20 and had a chest CT that was negative for a pulmonary embolism. Patient was found to be anemic 7.06/11 but is not taking any treatments. Patient states he has been feeling short of breath but more so when moving around. He notes his last colonoscopy was more than 5 years ago but not more than 10 years ago and it was normal. Course/Dx - Course Course Of Treatment: This patient was signed out by Dr. Kenny pending an abdominal/pelvic CT. I went and examined the patient and he is reporting that the patient is really weak, short of breath for the last couple days. Patient had a CTA at [facility] on January 03, 2020 and it was negative for a PE. Blood work shows that the patient is anemic. Troponin is 0.00. Abdominopelvic CT as above. However, I noticed that the patient has been hypotensive throughout his stay in the emergency department, therefore the patient was given 2 L of IV fluids. Patient responded to the IV fluids and blood pressure now is 120/60. I discussed my physical exam and findings with Dr. Holcomb from the hospitalist services and he accepted the patient for admission. Patient is hemodynamically stable, alert and oriented 3. - Diagnoses Provider Diagnoses: Weak, Shortness of breath, Symptomatic anemia, Hypotension - Provider Notifications Discussed Care Of Patient With: Miguel Angel Holcomb - hospitalist Time Discussed With Above Provider: 10:45 Instructed by Provider To: Admit As Inpatient Discharge ED - Sign-Out/Discharge Documenting (check all that apply): Patient Departure - Admit to [facility], Receiving Sign-Out Receiving patient FROM: Nolvia Kenny - Discharge Plan Condition: Stable Disposition: ADMITTED TO [facility] - Billing Disposition and Condition Condition: STABLE Disposition: Admitted to [facility] - Attestation Statements Document Initiated by Roberto: Yes Documenting Scribe: Pema Tejeda Provider For Whom Roberto is Documenting (Include Credential): Sascha Yoder MD Scribe Attestation: Pema Carranza, scribed for Sascha Yoder MD on 01/11/20 at 0749. Scribe Documentation Reviewed: Yes Provider Attestation: The documentation as recorded by the Pema bernal accurately reflects the service I personally performed and the decisions made by me, Sascha Yoder MD Status of Scribe Document: Viewed
[2020-01-09 08:28] LABS: C Reactive Protein < 1.00 mg/L (<8.01); Creatine Kinase 52 U/L (10-223)
[2020-01-09 11:08] LABS: Hematocrit 26 % (42-52); Hemoglobin 7.4 g/dL (14.0-18.0); Mean Corpuscular HGB Conc 29 g/dL (31-36); Mean Corpuscular Hemoglobin 17 pg (27-31); Mean Corpuscular Volume 60 fL (80-94); Mean Platelet Volume 8.4 fL (7.4-10.4); Platelet Count 176 10^3/uL (150-450); Red Cell Distribution Width 20 % (10-15); White Blood Count 5.2 10^3/uL (3.5-10.8)
[2020-01-09 11:44] LABS: Microcytosis 1+; Polychromasia 1+
[2020-01-09 11:48] LABS: ABS Basophils 0.2 10^3/ul (0-0.2); ABS Eosinophils 0.1 10^3/ul (0-0.6); Nucleated Red Blood Cells % 0.2
[2020-01-09 11:51] LABS: Total Iron Binding Capacity 564 mcg/dL (250-450); Transferrin 403 mg/dL (203-362)
[2020-01-09 11:54] LABS: % Iron Saturation 4 % (15-55); Iron < 20 ug/dL (50-212)
[2020-01-09] MEDS ORDERED: Ondansetron INJ* 2 MG/ML VIAL IV PRN (11:54)
[2020-01-09 12:03] LABS: Ferritin 8.4 ng/mL (24-336)
[2020-01-09 12:09] LABS: Folate 7.88 ng/mL (>3.99)
[2020-01-09] MEDS ORDERED: Cyanocobalamin TAB* 500 MCG PO SCH (13:00)
[2020-01-09] MEDS ORDERED: Pantoprazole IV* 40 MG IV SCH (13:00)
[2020-01-09] MEDS ORDERED: Folic Acid TAB* 1 MG PO SCH (13:00)
--- NOTE | 2020-01-09 15:35 | HP ---
CONTINUATION ADDENDUM NOW INCLUDED ON THIS REPORT ADMISSION HISTORY AND PHYSICAL: DATE OF ADMISSION: 01/09/20 PRIMARY CARE PHYSICIAN: TIMO Murillo ADMITTING PHYSICIAN: Dr. Holcomb * (dictated by Joaquin Dougherty NP). CHIEF COMPLAINT: Not feeling well. HISTORY OF PRESENT ILLNESS: Mr. Yip is a 49-year-old male with past medical history significant for COPD, anemia, [place] in 2013, who presented to the emergency department today with chief complaint of anemia. He stated that he went to [facility] on 01/04/20 where they told him he was anemic with a hemoglobin of 7.7 and it sounds as if he did not get much more information in that. He stated that since then he has had increased shortness of breath, fatigue, fevers, generalized pain, night sweats, headache, and some nausea. However, he states that in general, he has not been feeling well for a month. He has been feeling tired and drained. He believes he is more pale than usual. Sleeping more. He states he gets winded with walking. He states his heart feels like it is beating very strongly in his chest when he walks. He states that both of these issues seemed to resolve with rest. He also states that he has had a mild almost constant headache in the frontal region from cheondoism to cheondoism over the last month that also gets worse with walking around. He has had some right lower quadrant cramping on and off for the last couple of months per his report. He states that he will sometimes get diarrhea 1 to 2 times per week. Denies any dark stools or notable blood in stool. He states he is urinating okay. Denies any blood in his urine. He states that he had a similar episode to this about 10 years ago. GI studies were done and they did not find any bleeding per his report. Denies been on any blood thinners. He states that the last time he took ibuprofen was at least a month ago if not longer. He states that he stopped going to the pain clinic about 4 months ago. Denies any current chest pain, shortness of breath while lying down, other abdominal discomfort, nausea, vision changes, unusual numbness or tingling, swelling, rashes, lesions or wounds. The patient denies any known bleeding or clotting disorders, recent procedures or hospitalizations other than the above mentioned or recent antibiotic use. While in the emergency department, CT of the abdomen and pelvis, impression showed no obvious etiology for the patient's severe anemia. He came in with an initial blood pressure of 153/81 which stabilized in the lower 100s; however, at 5:51, his blood pressure dropped to 95 /62 and then there was a further drop at 8:51 down to 84/51 and what appears to be a manual blood pressure at 9:21 at 79/48. He received a total of 2 L of normal saline in the emergency department, last one administered at 9:20. Blood pressures have since stabilized. He has not been tachycardic. He does have occasional elevations in respiratory rate. Originally, O2 sat was in the low to the 90s; however, it is noted in the nursing notes from the emergency department that the patient de-sated to 87% to 88% on room air while sleeping. 2 L of O2 was applied and has been on him since. In light of the significant anemia and hypotension, Hospital Medicine was asked to evaluate the patient for admission. The patient does admit to taking 1 tab of nitro couple days ago. He stated that he was having some pain in his chest, this was relieved by the one dose of nitro and has not had that pain since. He also states that he last uses albuterol 2 days ago. PAST MEDICAL HISTORY: 1. Degenerative disk disease. 2. [place] in 2012. 3. COPD. 4. Hiatal hernia. 5. Prior pain clinic patient. 6. Back problems. PAST SURGICAL HISTORY: 1. Right shoulder surgery. 2. Left knee surgery. 3. C5 through C6 fusion. 4. Cholecystectomy. 5. Abdominal hernia repair. 6. Cardiac stent in 2012. HOME MEDICATIONS: 1. Gabapentin 600 mg p.o. t.i.d. p.r.n. 2. Nitroglycerin 1 tab sublingual p.r.n. 3. Albuterol sulfate 2 puffs inhaled q.6 hours p.r.n. 4. Pantoprazole 1 tab p.o. daily. 5. Ibuprofen 600 mg p.o. t.i.d. p.r.n. ALLERGIES: 1. CHANTIX. 2. ACETAMINOPHEN. 3. MEPERIDINE. 4. MUSHROOMS. FAMILY HISTORY: Father with seizures, from [place] at age 59. Mother with kidney disease stage 4, from congestive heart failure at age 53. She also had diabetes mellitus. Brother with a history of [place]. Brother too with history of diabetes mellitus. SOCIAL HISTORY: The patient states that a surrogate decision maker for him would be his brother, Frank Yip. Current smoker of a half pack per day for 35 years which gives him a 17-1/2 pack year history. He states rare alcohol use, last time was 1 plus months ago. Denies any illicit drug use. Lives alone. Disabled. He has 6 children. REVIEW OF SYSTEMS: A 10-point review of systems was completed with this patient. Please see HPI for all pertinent positives and negatives. CONTINUATION ADDENDUM: PHYSICAL EXAMINATION CONSTITUTIONAL: The patient lying in bed, pallor appearance. VITAL SIGNS: Temp 98.4, heart rate 73, respiratory rate 26, O2 sat 96% on 2 L, O2 via nasal cannula, blood pressure 117/77. HEENT: PERRLA. No scleral icterus. Mucous membranes slightly dry. Thyroid normal in size. No nodules. LYMPHATIC: No cervical lymphadenopathy noted. RESPIRATORY: Rhonchi noted throughout bilaterally, which cleared with coughing and deep breathing. CARDIOVASCULAR: Heart rate regular. S1, S2 present. No murmurs, rubs, or gallops noted. No edema. GI: Bowel sounds throughout. Abdomen is soft with mild tenderness to right upper quadrant with deep palpation. The patient tolerated well. No masses or organomegaly noted. NEURO: Alert and oriented x3. Cranial nerves II through XII grossly intact. Able to sense light touch to bilateral feet. PSYCH: Responds appropriately. Normal affect. SKIN: Pale, warm, dry. DIAGNOSTIC STUDIES AND LAB DATA: EKG shows sinus rhythm with a rate of 83. CT of abdomen and pelvis, impression: States no obvious etiology for the patient's severe anemia. Diverticulosis. Large hiatal hernia. Mild hepatomegaly 19 cm. There are a few hypodensities which are too small to characterize but statistically benign. Cholecystectomy. Coronary artery disease. Lab values: Labs from 0213 on 01/09/20, WBC 7.2, RBC 4.87, hemoglobin 8.5, hematocrit 29, MCV 60, MCH 17, RDW 19, platelet count 212. INR 0.97. APTT 29.9. Sodium 141, potassium 4.1, chloride 108, carbon dioxide 24, anion gap 9, BUN 12, creatinine 0.86. Estimated GFR 93.8. BUN and creatinine ratio 14.0. Glucose 163, calcium 9.2. Total bili 0.3. AST 10, ALT 10, alk phosphatase 95. Total creatine kinase 52. Troponin 0.00. CRP less than 1. Total protein 6.8 , albumin 4.3, globulin 2.5. Vitamin B12 243, folate 7.88, TSH 2.9, iron less than 20. TIBC 564. Percent saturation for unsaturated iron binding less than 549, transferrin 403, ferritin 8.4. Labs from 1054 on 01/09/20, RBC 4.3, hemoglobin 7.4, hematocrit 26, MCV 60, MCH 17, MCHC 29, RDW 20. ASSESSMENT AND PLAN: Mr. Yip is a 49-year-old male with past medical history significant for chronic obstructive pulmonary disease, myocardial infarction in 2012, cardiac stent in 2012, anemia, and prior pain clinic patient. He was noted from a prior ER visit to [facility] on 01/04/20 to have a hemoglobin of 7.7. Throughout his stay, heart rate has remained within normal limits alluding to the fact that this could very well be of a chronic condition. Current H and H similar to that noted from his visit to the [facility] on 01/04/20, which also alludes to the fact that there may not be any actual active bleeding. He presented today with complaints of worsening fatigue, shortness of breath, and other symptomatic complaints. Hospital Medicine was asked to evaluate the patient for admission. 1. Symptomatic anemia. Iron deficiency anemia. Most recent H and H 7.4 and 26 after fluid repletion. RDW 20, MCV 60, MCH 17. Iron studies show that the patient is significantly deficient. He is symptomatic with fatigue, shortness of breath, pounding palpitations with activity. He is pale. 1 unit packed red cells ordered. H and H ordered 1 to 2 hours after a unit transfused. GI consult. NPO. Order to obtain old records. 2. Hypotension. The patient presented with normal blood pressures; however, had a significant drop in BPs earlier this morning, which has stabilized since receiving 2 L of IV fluid in the emergency department. His orthostatic blood pressures are normal. We will continue to monitor. 3. Hypoxia. The patient was noted to become hypoxic in the emergency department after he fell asleep. He was then placed on 2 L of O2 via nasal cannula. He does not seem to distinguish either way whether the oxygen improves his breathing quality or not. We will continue to monitor. 4. History of myocardial infarction. Again, we will continue to stabilize and monitor. The patient is to receive 1 unit PRBCs, and we will evaluate for potential cause of anemia. 5. FEN: NPO. Is awaiting 1 unit PRBCs. 6. Code status: Full code. 7. DVT prophylaxis: SCDs ordered. 8. Consults. GI has been consulted. TIME SPENT: Approximately 75 minutes was spent on this admission with above half of that being [id number] with the patient for interview, physical exam, and discussing plan of care. This case has been reviewed by my attending physician Dr. Holcomb, and he agrees with this plan. JOAQUIN DOUGHERTY, [employer]EL[employer] [id number]/CPS #: [id number]/CPS #: [id number] ADDENDUM: Per progress note from pt also exhibited borderline hypoxia during procedure as well as report from to . Discussed with as pt may be having an exacerbation of COPD, to prevent further complications and to optimize pt we will start a course of abx, steroids (IV as he is will be NPO) and respiratory treatment. Again this has been discussed with . [facility]ITALAjit
[2020-01-09 15:59] LABS: White Blood Count 7.2 10^3/uL (3.5-10.8)
[2020-01-09] MEDS ORDERED: fentaNYL* 50 MCG/ML 2 ML VIAL (100 MCG VIAL) ONE (16:38)
[2020-01-09] MEDS ORDERED: Midazolam* 1 MG/ML 10 ML VIAL (10 MG) ONE (16:39)
--- NOTE | 2020-01-09 17:34 | PN ---
Progress Note - Progress Note Date of Service: 01/09/20 Note: BRIEF GI NOTE Post-procedure note- E: Unremarkable G: Large hiatal hernia. Limited views of hiatal hernia sac. Difficult to navigate scope into intra-abdominal stomach. No fresh or old blood. No PUD. Biopsied. D: Unremarkable. Biopsied. Difficult case due to borderline hypoxia (92% at start -- required face mask w/ 4-6 L during case) limiting sedation ability. Patient also agitated during case. Impression: Large hiatal hernia. No obvious source of MT seen on exam. Recommendations: - Clear diet. 4L GOlytely. NPO after MN. Colonoscopy tmrw. - Consider IV iron (vs oral iron). - PPI daily for GERD. - Monitor CBC. Danni Gomez MD Gastroenterology
[2020-01-09] MEDS ORDERED: Gabapentin CAP(*) 300 MG PO PRN (18:09)
[2020-01-09] MEDS ORDERED: Nitroglycerin TAB 0.4 MG* 0.4 MG TAB SL PRN (18:09)
[2020-01-09] MEDS ORDERED: Nicotine PATCH 14 MG/24 HR* PATCH TRANSDERM SCH (18:09)
[2020-01-09] MEDS ORDERED: Albuterol 2.5 MG/3 ML NEB.SOL* (0.083%) INH PRN (18:13)
[2020-01-09] MEDS ORDERED: PEG 3000 GI LAVAGE* 1 GALLON PO ONE (18:13)
[2020-01-09] MEDS ORDERED: traMADol TAB* 50 MG PO ONE (18:47)
[2020-01-09] MEDS ORDERED: Azithromycin 500 mg/250 ml NS 500 MG/250 ML BAG IVPB SCH (19:30)
--- NOTE | 2020-01-09 19:48 | HP ---
HISTORY AND PHYSICAL: ADDENDUM: PHYSICAL EXAMINATION CONSTITUTIONAL: The patient lying in bed, pallor appearance. VITAL SIGNS: Temp 98.4, heart rate 73, respiratory rate 26, O2 sat 96% on 2 L, O2 via nasal cannula, blood pressure 117/77. HEENT: PERRLA. No scleral icterus. Mucous membranes slightly dry. Thyroid normal in size. No nodules. LYMPHATIC: No cervical lymphadenopathy noted. RESPIRATORY: Rhonchi noted throughout bilaterally, which cleared with coughing and deep breathing. CARDIOVASCULAR: Heart rate regular. S1, S2 present. No murmurs, rubs, or gallops noted. No edema. GI: Bowel sounds throughout. Abdomen is soft with mild tenderness to right upper quadrant with deep palpation. The patient tolerated well. No masses or organomegaly noted. NEURO: Alert and oriented x3. Cranial nerves II through XII grossly intact. Able to sense light touch to bilateral feet. PSYCH: Responds appropriately. Normal affect. SKIN: Pale, warm, dry. DIAGNOSTIC STUDIES AND LAB DATA: EKG shows sinus rhythm with a rate of 83. CT of abdomen and pelvis, impression: States no obvious etiology for the patient's severe anemia. Diverticulosis. Large hiatal hernia. Mild hepatomegaly 19 cm. There are a few hypodensities which are too small to characterize but statistically benign. Cholecystectomy. Coronary artery disease. Lab values: Labs from 0213 on 01/09/20, WBC 7.2, RBC 4.87, hemoglobin 8.5, hematocrit 29, MCV 60, MCH 17, RDW 19, platelet count 212. INR 0.97. APTT 29.9. Sodium 141, potassium 4.1, chloride 108, carbon dioxide 24, anion gap 9, BUN 12, creatinine 0.86. Estimated GFR 93.8. BUN and creatinine ratio 14.0. Glucose 163, calcium 9.2. Total bili 0.3. AST 10, ALT 10, alk phosphatase 95. Total creatine kinase 52. Troponin 0.00. CRP less than 1. Total protein 6.8 , albumin 4.3, globulin 2.5. Vitamin B12 243, folate 7.88, TSH 2.9, iron less than 20. TIBC 564. Percent saturation for unsaturated iron binding less than 549, transferrin 403, ferritin 8.4. Labs from 1054 on 01/09/20, RBC 4.3, hemoglobin 7.4, hematocrit 26, MCV 60, MCH 17, MCHC 29, RDW 20. ASSESSMENT AND PLAN: Mr. Yip is a 49-year-old male with past medical history significant for chronic obstructive pulmonary disease, myocardial infarction in 2012, cardiac stent in 2012, anemia, and prior pain clinic patient. He was noted from a prior ER visit to [facility] on 01/04/20 to have a hemoglobin of 7.7. Throughout his stay, heart rate has remained within normal limits alluding to the fact that this could very well be of a chronic condition. Current H and H similar to that noted from his visit to the [facility] on 01/04/20, which also alludes to the fact that there may not be any actual active bleeding. He presented today with complaints of worsening fatigue, shortness of breath, and other symptomatic complaints. Hospital Medicine was asked to evaluate the patient for admission. 1. Symptomatic anemia. Iron deficiency anemia. Most recent H and H 7.4 and 26 after fluid repletion. RDW 20, MCV 60, MCH 17. Iron studies show that the patient is significantly deficient. He is symptomatic with fatigue, shortness of breath, pounding palpitations with activity. He is pale. 1 unit packed red cells ordered. H and H ordered 1 to 2 hours after a unit transfused. GI consult. NPO. Order to obtain old records. 2. Hypotension. The patient presented with normal blood pressures; however, had a significant drop in BPs earlier this morning, which has stabilized since receiving 2 L of IV fluid in the emergency department. His orthostatic blood pressures are normal. We will continue to monitor. 3. Hypoxia. The patient was noted to become hypoxic in the emergency department after he fell asleep. He was then placed on 2 L of O2 via nasal cannula. He does not seem to distinguish either way whether the oxygen improves his breathing quality or not. We will continue to monitor. 4. History of myocardial infarction. Again, we will continue to stabilize and monitor. The patient is to receive 1 unit PRBCs, and we will evaluate for potential cause of anemia. 5. FEN: NPO. Is awaiting 1 unit PRBCs. 6. Code status: Full code. 7. DVT prophylaxis: SCDs ordered. 8. Consults. GI has been consulted. TIME SPENT: Approximately 75 minutes was spent on this admission with above half of that being [id number] with the patient for interview, physical exam, and discussing plan of care. This case has been reviewed by my attending physician Dr. Holcomb, and he agrees with this plan. JOAQUIN DOUGHERTY NP [id number]/CPS #: [id number] [place]
[2020-01-09] MEDS: methylPREDNISolone SOD 40 MG* 1 ML VIAL IV SCH (20:17)
[2020-01-09 20:30] LABS: Hematocrit 28 % (42-52); Hemoglobin 8.2 g/dL (14.0-18.0)
[2020-01-09] MEDS ORDERED: Nicotine Patch Removal NOTE FOLLOW UP SCH (21:00)
--- NOTE | 2020-01-09 21:44 | CONS ---
GASTROENTEROLOGY CONSULT REPORT: DATE OF CONSULT: 01/09/20 REQUESTING PROVIDER: Dr. Holcomb. REASON FOR CONSULT: Iron deficiency anemia. HISTORY OF PRESENT ILLNESS: Mr. Yip is a 49-year-old gentleman with a history of CAD and AR, status post stents, iron deficiency anemia, COPD, possible QUETA, GERD, who presents with fatigue and chest discomfort. Mr. Yip reports having increasing fatigue, shortness of breath with exertion and some chest discomfort, was noted to have anemia with a hemoglobin of 7.7 and 29 at [facility]. Presented to the ED for evaluation. On arrival, he had a hemoglobin down to 7.4 with a hematocrit of 26. MCV low at 60. Iron studies consistent with iron deficiency anemia. GI consulted. On interview, Mr. Yip reports that he has had intermittent iron deficiency anemia. He believes about 10 years ago, he was also quite anemic and was given transfusion. He believes he had an EGD and colonoscopy at [facility], which were unremarkable. Reports not available. He did not have a video capsule endoscopy. He is not on iron supplementation. He has normal brown bowel movements every other day. He has occasional loose stools once or twice a week. He has noted some mild spasms in his right lower quadrant. No other abdominal discomfort. Has noticed some nausea recently. No vomiting. Has GERD which is managed well with PPI daily. Reports infrequent NSAID use. PAST MEDICAL HISTORY: 1. Iron deficiency anemia. 2. CAD and AR, status post stenting. 3. COPD. 4. Possible sleep apnea. 5. Large hiatal hernia. 6. GERD. PAST SURGICAL HISTORY: 1. Cholecystectomy. 2. Hernia repair x2. 3. Shoulder, knee and neck surgeries. HOME MEDICATIONS: 1. Pantoprazole 40 mg daily. 2. Albuterol as needed. ALLERGIES: CHANTIX causes a rash. 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 DEMEROL with vomiting. FAMILY HISTORY: No GI or liver disease. SOCIAL HISTORY: On disability secondary to chronic back pain. He is a smoker, half a pack a day. No alcohol or drug use. PHYSICAL EXAM: Vital Signs: Afebrile, heart rate 60s to 70s, blood pressure 113/75, respiratory rate 16, 94% on room air. General: Pale-appearing gentleman. No acute distress. HEENT: Mucous membranes moist. Cardiovascular: Regular rate and rhythm. Pulmonary: Intermittent cough. Breath sounds in anterior lung haley are unremarkable. Abdomen: Nontender, nondistended, positive bowel sounds. Rectal: Not performed. Per the ED provider, the stool was brown. Extremities: No edema. Skin: Pale. DIAGNOSTIC STUDIES/LAB DATA: Labs reviewed. White count 5.2. Hemoglobin 7.4, hematocrit 26, MCV 60, platelet count 176. Percent iron saturation 4, iron less than 20, ferritin 8.4. LFTs are not concerning. Vitamin B12 of 243, folate 7.88, CRP less than 1. Stool occult negative. CT abdomen and pelvis noted diverticulosis and large hiatal hernia. No acute findings to explain anemia noted. Chest x-ray: Bibasilar linear airspace opacification (infiltrate versus atelectasis). IMPRESSION AND RECOMMENDATION: Mr. Yip is a 49-year-old gentleman with a history of iron deficiency anemia, coronary artery disease, status post stenting , chronic obstructive pulmonary disease, hiatal hernia, who is admitted with severe iron deficiency anemia. The patient is hemodynamically stable. Denies overt bleeding. Hemoccult is negative, although this may be a false negative. Labs are consistent with severe iron deficiency anemia with an MCV of 60. I do not think he is having an active severe GI bleed, although I worry about chronic slow blood loss in this patient. I think it is reasonable to begin evaluation with an upper endoscopy. If this is negative, then I would plan for coloscopy. Agree with iron repletion. NPO pending EGD. Please also obtain endoscopy reports from [facility] if possible. Thank you very much for this consult. [id number]/[facility] #: [id number] [facility]ENTER[facility]jit
[2020-01-10] MEDS ORDERED: traMADol TAB* 50 MG PO ONE (00:13)
--- NOTE | 2020-01-10 01:47 | PRO ---
CC: Dr. Holcomb * DATE OF PROCEDURE: 01/09/20 - ROOM #414 PROCEDURE: EGD with biopsy. REFERRING PROVIDER: Dr. Holcomb. INDICATION: Iron deficiency anemia. No overt bleeding. MEDICATIONS GIVEN: Midazolam 10 mg IV, Fentanyl 75 mcg IV. DESCRIPTION OF PROCEDURE: Full disclosure of risks was reviewed with the patient as detailed on the consent form. The patient was placed in the left lateral decubitus position and monitored with continuous pulse oximetry, capnography, interval blood pressure monitoring, and direct observation. A bite -block was placed between the patient's teeth. An adult gastroscope was then inserted into the patient's mouth and advanced down the esophagus, into the stomach, and into the distal duodenum. Findings and interventions are described below. FINDINGS: Esophagus was a tubular structure without rings or strictures. No esophagitis. Scope was advanced forward into the stomach. The patient has a large hiatal hernia with a significant portion of the stomach in his chest. It was challenging to advance the scope forward into the stomach as the scope kept moving towards the hiatal hernia sac portion. After several minutes, I was eventually able to move into the intraabdominal portion of the stomach. There was no fresh or old blood seen anywhere. No ulcers. The scope was advanced into the duodenum to at least the third portion. Views were a bit limited as the patient was becoming fairly agitated. I do not see any significant ulcers or AVMs. I obtained several biopsies to rule out celiac disease. Withdrew the scope back into the stomach and obtained a biopsy for CLOtest. I then withdrew the scope and attempted to look into the hiatal hernia sac, although again the patient was becoming more agitated at this point. There were a few flecks of old blood seen in the hiatal hernia sac, but no obvious erosions or ulcers noted. The scope was then withdrawn from the patient. The patient was recovered in the GI recovery area. IMPRESSION: 1. Complete upper endoscopy to the distal duodenum. 2. Large hiatal hernia versus paraesophageal hernia. 3. No source of severe iron-deficiency anemia identified on this exam. FOLLOWUP: 1. Await pathology. 2. I would recommend proceeding with a colonoscopy to be followed by a videocapsule endoscopy. His findings are unrevealing. If the patient is to have an upper endoscopy in the future, I would recommend that this be performed with anesthesia. He was borderline hypoxic throughout the case and will require transition to a face mask and 6 L. I there-fore was unable to increase the dose of moderate sedation used during the exam. I think he will feel better with moderate sedation for colonoscopy. 3. Recommend iron repletion. 4. Continue PPI daily for reflux. 5. Clear diet today, n.p.o. after midnight for colonoscopy tomorrow. Thank you very much for this referral. [id number]/[facility] #: [id number] [place]
[2020-01-10] MEDS: methylPREDNISolone SOD 40 MG* 1 ML VIAL IV SCH (04:04)
[2020-01-10 06:27] LABS: ABS Basophils 0.1 10^3/ul (0-0.2); ABS Lymphocytes 0.6 10^3/ul (1.0-4.8); ABS Monocytes 0.1 10^3/ul (0-0.8); ABS Neutrophils 3.7 10^3/ul (1.5-7.7); Eosinophil % 0.2 %; Hematocrit 28 % (42-52); Hemoglobin 8.6 g/dL (14.0-18.0); Lymphocyte % 13.3 %; Mean Corpuscular HGB Conc 31 g/dL (31-36); Mean Corpuscular Hemoglobin 19 pg (27-31); Mean Corpuscular Volume 61 fL (80-94); Mean Platelet Volume 8.4 fL (7.4-10.4); Nucleated Red Blood Cells % 0.1; Platelet Count 172 10^3/uL (150-450); Red Cell Distribution Width 21 % (10-15); White Blood Count 4.5 10^3/uL (3.5-10.8)
[2020-01-10] MEDS ORDERED: Pantoprazole IV* 40 MG IV SCH (06:30)
[2020-01-10] MEDS ORDERED: Pantoprazole TAB * 40 MG TAB PO SCH (09:00)
[2020-01-10 09:50] VITALS: BP 125/86
--- NOTE | 2020-01-10 12:27 | DS ---
CC: TIMO Murillo * DISCHARGE SUMMARY: DATE OF ADMISSION: 01/09/20 DATE OF DISCHARGE: 01/10/20 PRIMARY CARE PROVIDER: TIMO Murillo ATTENDING PHYSICIAN: Dr. Janine Malone * (dictated by TIMO Mejia). PRIMARY DIAGNOSES: 1. Symptomatic anemia. 2. Acute hypoxic respiratory failure, unknown cause. 3. Hypotension. SECONDARY DIAGNOSES: 1. Coronary artery disease, status post myocardial infarction with stenting in 2012. 2. Chronic obstructive pulmonary disease. 3. Degenerative disk disease, previously a pain clinic patient. 4. Hiatal hernias. STUDIES WHILE IN THE HOSPITAL: 1. Chest x-ray, impression: Bibasilar linear airspace opacification, infiltrate versus atelectasis. 2. CT abdomen and pelvis, impression: No obvious etiology for the patient's severe anemia. Diverticulosis, large hiatal hernia, hepatomegaly, cholecystectomy, coronary artery disease. 3. EGD, impression: Complete upper endoscopy to distal duodenum. Large hiatal hernia versus paraesophageal hernia. No source of severe iron- deficiency anemia identified on exam. 4. Chest x-ray, impression: No evidence for acute finding. Hiatal hernia. CONSULTATION WHILE IN THE HOSPITAL: Gastroenterology. A 49-year-old gentleman with history of iron-deficiency anemia; coronary artery disease, status post stenting; COPD; hiatal hernia, admitted for severe iron-deficiency anemia. Hemodynamically stable. Denies overt bleeding. Hemoccult negative, although this may be false negative. Labs consistent with severe iron-deficiency anemia with MCV of 60. I do not think he is having an active severe GI bleed, although I worry about chronic slow blood loss in this patient. Agree that it is reasonable to begin with upper endoscopy. If this is negative, plan for colonoscopy. Agree with iron repletion, n.p.o. pending EGD. Please obtain endoscopy reports from [place] if possible. DISCHARGE MEDICATIONS: Home medications: 1. Albuterol sulfate 2 puffs inhalation q.6 hours p.r.n. 2. Gabapentin 600 mg p.o. t.i.d. p.r.n. 3. Nitroglycerin 1 tab sublingual p.r.n. New home medications: 1. Cyanocobalamin 1000 mcg p.o. daily. 2. Ferrous sulfate liquid 220 mg p.o. daily. 3. Folic acid 1 mg p.o. daily. 4. Nicotine patch 14 mg transdermal daily. 5. Pantoprazole 40 mg p.o. b.i.d. Discontinued medications: Avoid NSAIDs. HISTORY OF PRESENT ILLNESS/HOSPITAL COURSE: Mr. Yip is a 49-year-old male with a past medical history of CAD, COPD, chronic pain, and history of anemia, who presented to the emergency department on 01/09/20 with complaints of anemia, which was discovered at [facility] approximately 5 days prior. He reportedly had a hemoglobin of 7.7. He states that he has been feeling unwell for approximately 1 month. He reports general malaise, fatigue, increased pallor, dyspnea on exertion. He denies melena, hematochezia, elizabeth blood in the stool, hematuria, and hematemesis. The patient was admitted. A stool for blood was negative. Gastroenterology was consulted and recommended EGD , which was unremarkable. Plan was for continued workup including colonoscopy. A CT of the abdomen and pelvis was also unrevealing. His H and H was monitored throughout his stay and was 8.5 at admission and 8.6 at discharge. There was some variability throughout his stay, but he was overall stable. He continued to deny melena, hematochezia. He did receive 1 unit of packed red blood cells when his hemoglobin drifted from 8.5 to 7.4. Again, he remained stable at approximately 8.5 after that point. The patient is seen in his room today and is demanding to be discharged. He would like to leave against medical advice. We had a long discussion about the planned interventions including colonoscopy and further GI consultation as well as possible capsule endoscopy planning. The patient is disinterested in this. We discussed the concerns of leaving against medical advice including continuing or worsened anemia, further disability, or even from blood loss. The patient understands the risks of leaving against medical advice, but still insists on leaving. He has the capacity to make this decision and displays insight and judgment. It is important to note that the patient did experience some episodes of hypotension during his stay. These resolved with volume resuscitation of 1 L bolus. Orthostatic vital signs were obtained and were unremarkable. His blood pressure was well controlled throughout the rest of his stay from yesterday afternoon on. 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 He then had oxygen requirements for some time. Repeat chest x- ray was obtained and was unremarkable. Previous x-ray showed possible bibasilar infiltrates. The patient denies cough. He is afebrile without leukocytosis. We were unable to further evaluate the patient's cause of hypoxia as he was unwilling to wait and wanted to be discharged. It was recommended that he follow with his primary care provider and possibly be assessed for sleep apnea. Again, a long discussion was had with the patient regarding further testing during his inpatient stay, but he declined these. We discussed possible impairments or disabilities and possibly even with leaving against medical advice and he understands and is in agreement with this. Mr. Yip will be discharged against medical advice. REVIEW OF SYSTEMS: A 14-point review of systems has been performed and all the pertinent positives and negatives are in the HPI. All other systems are negative. PHYSICAL EXAMINATION: Unable to obtain as the patient has left AMA. Vital Signs: Temperature 98.0 oral, heart rate 77, respiratory rate 16, oxygen saturation 98% on 3.5 L, blood pressure 110/69. DISCHARGE PLAN: Mr. Yip will be discharged to home against medical advice. DISPOSITION: Against medical advice. CONDITION: Stable. ACTIVITY: As tolerated. MEDICATIONS: As above. EDUCATION: 1. Follow up with primary care provider as soon as possible. 2. Follow up with customer service supervisor in [place] as soon as possible. 3. Follow up with [place] marking devices assembler as soon as possible. 4. You have decided to leave against medical advice. Please return to the ER or nearest hospital if you experience any return or worsening of symptoms, dizziness, lightheadedness, abdominal pain, nausea, vomiting, diarrhea, melena, hematochezia, hematemesis, hematuria; return for chest pain or discomfort, shortness of breath, high fevers, chills, night sweats, onset of coughing, or any other worrisome signs or symptoms. This is a summarized report of a complex medical history and hospital stay. For further details, please see the entire medical record. TIME SPENT: Approximately 30 minutes was spent on this discharge, greater than half that time was spent [id number] with the patient discussing discharge plans and instructions. TIMO NAVA [id number]/[facility] #: [id number] [place]
== END 2020-01-10 08:30 | disposition left against medical advice (07) ==
LOC: ED 01:44 → MED 11:54
PROVIDERS: ADMIT Internal Medicine; ATTEND Internal Medicine
PROC: 0DB98ZX Excision of Duodenum, Via Natural or Artificial Opening Endoscopic, Diagnostic (ICD-10-PCS; principal; 2020-01-09)
DX: D64.9 Anemia, unspecified (principal); J96.01 Acute respiratory failure with hypoxia; I95.9 Hypotension, unspecified; I25.10 Atherosclerotic heart disease of native coronary artery without angina pectoris; I25.2 Old myocardial infarction; Z95.5 Presence of coronary angioplasty implant and graft; J44.9 Chronic obstructive pulmonary disease, unspecified; K44.9 Diaphragmatic hernia without obstruction or gangrene; R16.0 Hepatomegaly, not elsewhere classified; R06.02 Shortness of breath; R53.1 Weakness; Z79.899 Other long term (current) drug therapy; Z88.8 Allergy status to other drugs, medicaments and biological substances; F17.210 Nicotine dependence, cigarettes, uncomplicated
CPT/HCPCS: 36415; 36430; 71045; 74177; 80053; 82272; 82550; 82607; 82728; 82746; 83540; 83550; 84443; 84484; 85014; 85018; 85025; 85060; 85610; 85730; 86140; 86850; 86900; 86901; 86922; 87077; 88305; 93005; 94640; 96361; 96365; 96375; 96376; 99156; 99157; 99285; A9270-GY; G0378; J0456; J1200; J2250; J2765; J2920; J3010; P9040; Q9967